=== PATIENT | female | born 1975 | race American Indian/Alaskan Native ===

== ENCOUNTER 2019-01-31 00:42 | Observation (INO) | payer OTHER ==
[2019-01-31 01:28] LABS: Hematocrit 23.4 % (30.3-42.9); Hemoglobin 6.9 gm/dl (10.1-14.3); Mean Corpuscular HGB Conc 30 % (30-34); Platelet Count 536 K/mm3 (140-440)
[2019-01-31 01:37] LABS: Mean Corpuscular Volume 57 fl (79-97); Red Cell Distribution Width 23.2 % (13.2-15.2)
[2019-01-31 02:09] LABS: Alanine Aminotransferase 6 units/L (7-56); BUN/Creatinine Ratio 13; Blood Urea Nitrogen 8 mg/dL (7-17); Calcium 9.1 mg/dL (8.4-10.2)
[2019-01-31 02:10] LABS: Hemolysis Index 1; RBC Morphology Normal; Total Cells Counted 100
[2019-01-31 03:02] LABS: Bilirubin,Urine NEG (Negative); Blood,Urine NEG (Negative); Color,Urine Yellow (Yellow); Mucus,Urine FEW /HPF; Protein,Urine <15 mg/dL mg/dL (Negative)
[2019-01-31] MEDS ORDERED: MORPHINE IV ONE (06:47)
[2019-01-31] MEDS ORDERED: NACL 0.9% 500 ML 500 ML IV ONE (06:48)
--- NOTE | 2019-01-31 09:46 | Cat Scan Report ---
CT ABDOMEN PELVIS WITH CONTRAST: HISTORY: Right sided abdominal pain. COMPARISON: none. TECHNIQUE: Helical CT in 1.25mm intervals following IV contrast. Sagittal and coronal reconstructions. FINDINGS: Lung bases: A large hiatal hernia is identified. Visualized lung bases are well aerated. Normal heart size. Liver: Normal. Biliary system: Normal. Pancreas: Normal. Spleen: Normal. Kidneys/ureters/bladder: Normal. Adrenal glands: Normal. Aorta: Normal. Intestines: Normal. Appendix: Normal. Pelvic viscera: A 2.2 cm simple cyst is identified in the right ovary. The left ovary is unremarkable. A 3.1 cm intramural fibroid is suspected along the right side of the uterine fundus. Normal endometrium. Ascites: None. Adenopathy: None. Musculoskeletal: Normal. IMPRESSION: 2.2 cm right ovarian cyst. Uterine fibroid. Hiatal hernia. No acute inflammatory process is identified.
--- NOTE | 2019-01-31 10:24 | Emergency Department Report ---
ED General Adult HPI - General Chief complaint: Abdominal Pain Stated complaint: SHARP PAINS RIGHT SIDE Time Seen by Provider: 01/31/19 06:09 Source: patient Mode of arrival: Ambulatory Limitations: No Limitations - History of Present Illness Initial comments: Patient is a 43-year-old female past medical history high blood pressure who presents with right flank pain that going on for the last couple of days. Patient states that the pain is a 9 out of 10 in a heat type of pain. She also states that she's been having heavy bleeding from her menses. However she is not currently having any vaginal bleeding. Patient denies any nausea or vomiting she denies having any shortness of breath. Patient denies having any fevers or chills Severity scale (0 -10): 8 - Related Data Previous Rx's Medication Instructions Recorded Last Taken Type Acetaminophen [Acetaminophen TAB] 650 mg PO Q6H PRN #30 tablet 05/01/15 Unknown Rx Aspirin EC [Halfprin EC] 81 mg PO QDAY #30 tablet. 05/01/15 Unknown Rx Metoprolol [Lopressor TAB] 25 mg PO BID #60 tablet 05/01/15 Unknown Rx Allergies Allergy/AdvReac Type Severity Reaction Status Date / Time No Known Allergies Allergy Verified 04/30/15 18:07 ED Review of Systems ROS: Stated complaint: SHARP PAINS RIGHT SIDE Other details as noted in HPI Constitutional: denies: chills, fever Eyes: denies: eye pain, eye discharge, vision change ENT: denies: ear pain, throat pain Respiratory: denies: cough, shortness of breath, wheezing Cardiovascular: denies: chest pain, palpitations Endocrine: no symptoms reported Gastrointestinal: abdominal pain. denies: nausea, diarrhea Genitourinary: abnormal menses. denies: urgency, dysuria, discharge Musculoskeletal: denies: back pain, joint swelling, arthralgia Skin: denies: rash, lesions Neurological: denies: headache, weakness, paresthesias Psychiatric: denies: anxiety, depression Hematological/Lymphatic: denies: easy bleeding, easy bruising ED Past Medical Hx - Past Medical History Previous Medical History?: No - Surgical History Past Surgical History?: Yes Additional Surgical History: tubaligation - Social History Smoking Status: Never Smoker Substance Use Type: None - Medications Home Medications: Home Medications Medication Instructions Recorded Confirmed Last Taken Type Acetaminophen [Acetaminophen TAB] 650 mg PO Q6H PRN #30 tablet 05/01/15 Unknown Rx Aspirin EC [Halfprin EC] 81 mg PO QDAY #30 tablet. 05/01/15 Unknown Rx Metoprolol [Lopressor TAB] 25 mg PO BID #60 tablet 05/01/15 Unknown Rx ED Physical Exam - General Limitations: No Limitations General appearance: alert, in no apparent distress - Head Head exam: Present: atraumatic, normocephalic - Eye Eye exam: Present: normal appearance - ENT ENT exam: Present: mucous membranes moist - Neck Neck exam: Present: normal inspection - Respiratory Respiratory exam: Present: normal lung sounds bilaterally. Absent: respiratory distress - Cardiovascular Cardiovascular Exam: Present: regular rate, normal rhythm. Absent: systolic mur mur, diastolic murmur, rubs, gallop - GI/Abdominal GI/Abdominal exam: Present: soft, normal bowel sounds - Extremities Exam Extremities exam: Present: normal inspection - Back Exam Back exam: Present: normal inspection - Neurological Exam Neurological exam: Present: alert, oriented X3 - Psychiatric Psychiatric exam: Present: normal affect, normal mood - Skin Skin exam: Present: warm, dry, intact, normal color. Absent: rash ED Course Vital Signs 01/31/19 01/31/19 01/31/19 00:46 04:31 06:02 Temperature 98.1 F 97.9 F Pulse Rate 93 H 73 63 Respiratory 18 18 16 Rate Blood Pressure 153/76 143/77 Blood Pressure 133/80 [Left] O2 Sat by Pulse 100 100 100 Oximetry 01/31/19 01/31/19 01/31/19 08:15 08:46 09:00 Temperature Pulse Rate 58 L 62 60 Respiratory 12 14 12 Rate Blood Pressure 131/75 110/46 125/73 Blood Pressure [Left] O2 Sat by Pulse 100 100 100 Oximetry 01/31/19 01/31/19 01/31/19 09:15 09:30 09:46 Temperature Pulse Rate 61 60 62 Respiratory 13 13 13 Rate Blood Pressure 136/76 132/72 141/58 Blood Pressure [Left] O2 Sat by Pulse 100 100 100 Oximetry 01/31/19 01/31/19 01/31/19 10:00 10:16 10:30 Temperature Pulse Rate 63 61 60 Respiratory 12 22 12 Rate Blood Pressure 141/58 141/58 137/67 Blood Pressure [Left] O2 Sat by Pulse 100 100 100 Oximetry 01/31/19 01/31/19 01/31/19 10:45 11:00 11:24 Temperature Pulse Rate 58 L 61 65 Respiratory 13 14 11 L Rate Blood Pressure 121/62 129/72 121/62 Blood Pressure [Left] O2 Sat by Pulse 100 100 100 Oximetry 01/31/19 01/31/19 01/31/19 11:30 11:45 12:00 Temperature Pulse Rate 62 57 L 59 L Respiratory 12 12 13 Rate Blood Pressure 116/64 119/69 121/62 Blood Pressure [Left] O2 Sat by Pulse 100 100 100 Oximetry 01/31/19 01/31/19 01/31/19 12:16 12:21 12:25 Temperature 97.7 F Pulse Rate 64 67 Respiratory 12 12 Rate Blood Pressure 124/76 124/76 Blood Pressure [Left] O2 Sat by Pulse 100 100 Oximetry 01/31/19 01/31/19 01/31/19 12:34 12:45 13:01 Temperature Pulse Rate 66 69 62 Respiratory 14 15 15 Rate Blood Pressure 117/42 126/50 Blood Pressure [Left] O2 Sat by Pulse 100 100 100 Oximetry 01/31/19 01/31/19 01/31/19 13:15 13:30 13:45 Temperature Pulse Rate 63 63 64 Respiratory 15 15 14 Rate Blood Pressure 126/50 111/55 114/65 Blood Pressure [Left] O2 Sat by Pulse 100 100 100 Oximetry 01/31/19 01/31/19 14:00 14:05 Temperature Pulse Rate 63 Respiratory 14 18 Rate Blood Pressure 107/69 Blood Pressure [Left] O2 Sat by Pulse 100 Oximetry ED Medical Decision Making - Lab Data Result diagrams: 01/31/19 01:00 01/31/19 01:00 Lab Results 01/31/19 01/31/19 01/31/19 Range/Units 01:00 01:00 07:06 WBC 6.1 (4.5-11.0) K/mm3 RBC 4.10 (3.65-5.03) M/mm3 Hgb 6.9 L (10.1-14.3) gm/dl Hct 23.4 L (30.3-42.9) % MCV 57 L (79-97) fl MCH 17 L (28-32) pg MCHC 30 (30-34) % RDW 23.2 H (13.2-15.2) % Plt Count 536 H (140-440) K/mm3 Add Manual Diff Complete Total Counted 100 Seg Neuts % (Manual) 40.0 (40.0-70.0) % Band Neutrophils % 0 % Lymphocytes % (Manual) 47.0 H (13.4-35.0) % Reactive Lymphs % (Man) 0 % Monocytes % (Manual) 10.0 H (0.0-7.3) % Eosinophils % (Manual) 2.0 (0.0-4.3) % Basophils % (Manual) 1.0 (0.0-1.8) % Metamyelocytes % 0 % Myelocytes % 0 % Promyelocytes % 0 % Blast Cells % 0 % Nucleated RBC % Not Reportable Seg Neutrophils # Man 2.4 (1.8-7.7) K/mm3 Band Neutrophils # 0.0 K/mm3 Lymphocytes # (Manual) 2.9 (1.2-5.4) K/mm3 Abs React Lymphs (Man) 0.0 K/mm3 Monocytes # (Manual) 0.6 (0.0-0.8) K/mm3 Eosinophils # (Manual) 0.1 (0.0-0.4) K/mm3 Basophils # (Manual) 0.1 (0.0-0.1) K/mm3 Metamyelocytes # 0.0 K/mm3 Myelocytes # 0.0 K/mm3 Promyelocytes # 0.0 K/mm3 Blast Cells # 0.0 K/mm3 WBC Morphology Not Reportable Hypersegmented Neuts Not Reportable Hyposegmented Neuts Not Reportable Hypogranular Neuts Not Reportable Smudge Cells Not Reportable Toxic Granulation Not Reportable Toxic Vacuolation Not Reportable Dohle Bodies Not Reportable Pelger-Huet Anomaly Not Reportable Chidi Rods Not Reportable Platelet Estimate Not Reportable Clumped Platelets Not Reportable Plt Clumps, EDTA Not Reportable Large Platelets Not Reportable Giant Platelets Not Reportable Platelet Satelliting Not Reportable Plt Morphology Comment Not Reportable RBC Morphology Normal Dimorphic RBCs Not Reportable Polychromasia Not Reportable Hypochromasia Not Reportable Poikilocytosis Not Reportable Anisocytosis Not Reportable Microcytosis Not Reportable Macrocytosis Not Reportable Spherocytes Not Reportable Pappenheimer Bodies Not Reportable Sickle Cells Not Reportable Target Cells Not Reportable Tear Drop Cells Not Reportable Ovalocytes Not Reportable Helmet Cells Not Reportable [place] Bodies Not Reportable [place] Rings Not Reportable [place] Cells Not Reportable Bite Cells Not Reportable Crenated Cell Not Reportable Elliptocytes Not Reportable Acanthocytes (Spur) Not Reportable Rouleaux Not Reportable Hemoglobin C Crystals Not Reportable Schistocytes Not Reportable Malaria parasites Not Reportable Pranav Bodies Not Reportable Hem Pathologist Commnt No Sodium 139 (137-145) mmol/L Potassium 4.3 (3.6-5.0) mmol/L Chloride 106.2 (98-107) mmol/L Carbon Dioxide 21 L (22-30) mmol/L Anion Gap 16 mmol/L BUN 8 (7-17) mg/dL Creatinine 0.6 L (0.7-1.2) mg/dL Estimated GFR > 60 ml/min BUN/Creatinine Ratio 13 % Glucose 106 H (65-100) mg/dL Calcium 9.1 (8.4-10.2) mg/dL Total Bilirubin 0.30 (0.1-1.2) mg/dL AST 13 (5-40) units/L ALT 6 L (7-56) units/L Alkaline Phosphatase 73 (35-129) units/L Total Protein 7.4 (6.3-8.2) g/dL Albumin 4.0 (3.9-5) g/dL Albumin/Globulin Ratio 1.2 % Urine Color (Yellow) Urine Turbidity (Clear) Urine pH (5.0-7.0) Ur Specific [place] (1.003-1.030) Urine Protein (Negative) mg/dL Urine Glucose (UA) (Negative) mg/dL Urine Ketones (Negative) mg/dL Urine Blood (Negative) Urine Nitrite (Negative) Urine Bilirubin (Negative) Urine Urobilinogen (<2.0) mg/dL Ur Leukocyte Esterase (Negative) Urine WBC (Auto) (0.0-6.0) /HPF Urine RBC (Auto) (0.0-6.0) /HPF U Epithel Cells (Auto) (0-13.0) /HPF Urine Mucus /HPF Blood Type O POSITIVE Antibody Screen Negative Crossmatch See Detail 01/31/19 Range/Units Unknown WBC (4.5-11.0) K/mm3 RBC (3.65-5.03) M/mm3 Hgb (10.1-14.3) gm/dl Hct (30.3-42.9) % MCV (79-97) fl MCH (28-32) pg MCHC (30-34) % RDW (13.2-15.2) % Plt Count (140-440) K/mm3 Add Manual Diff Total Counted Seg Neuts % (Manual) (40.0-70.0) % Band Neutrophils % % Lymphocytes % (Manual) (13.4-35.0) % Reactive Lymphs % (Man) % Monocytes % (Manual) (0.0-7.3) % Eosinophils % (Manual) (0.0-4.3) % Basophils % (Manual) (0.0-1.8) % Metamyelocytes % % Myelocytes % % Promyelocytes % % Blast Cells % % Nucleated RBC % Seg Neutrophils # Man (1.8-7.7) K/mm3 Band Neutrophils # K/mm3 Lymphocytes # (Manual) (1.2-5.4) K/mm3 Abs React Lymphs (Man) K/mm3 Monocytes # (Manual) (0.0-0.8) K/mm3 Eosinophils # (Manual) (0.0-0.4) K/mm3 Basophils # (Manual) (0.0-0.1) K/mm3 Metamyelocytes # K/mm3 Myelocytes # K/mm3 Promyelocytes # K/mm3 Blast Cells # K/mm3 WBC Morphology Hypersegmented Neuts Hyposegmented Neuts Hypogranular Neuts Smudge Cells Toxic Granulation Toxic Vacuolation Dohle Bodies Pelger-Huet Anomaly Chidi Rods Platelet Estimate Clumped Platelets Plt Clumps, EDTA Large Platelets Giant Platelets Platelet Satelliting Plt Morphology Comment RBC Morphology Dimorphic RBCs Polychromasia Hypochromasia Poikilocytosis Anisocytosis Microcytosis Macrocytosis Spherocytes Pappenheimer Bodies Sickle Cells Target Cells Tear Drop Cells Ovalocytes Helmet Cells [place] Bodies [place] Rings [place] Cells Bite Cells Crenated Cell Elliptocytes Acanthocytes (Spur) Rouleaux Hemoglobin C Crystals Schistocytes Malaria parasites Pranav Bodies Hem Pathologist Commnt Sodium (137-145) mmol/L Potassium (3.6-5.0) mmol/L Chloride (98-107) mmol/L Carbon Dioxide (22-30) mmol/L Anion Gap mmol/L BUN (7-17) mg/dL Creatinine (0.7-1.2) mg/dL Estimated GFR ml/min BUN/Creatinine Ratio % Glucose (65-100) mg/dL Calcium (8.4-10.2) mg/dL Total Bilirubin (0.1-1.2) mg/dL AST (5-40) units/L ALT (7-56) units/L Alkaline Phosphatase (35-129) units/L Total Protein (6.3-8.2) g/dL Albumin (3.9-5) g/dL Albumin/Globulin Ratio % Urine Color Yellow (Yellow) Urine Turbidity Clear (Clear) Urine pH 7.0 (5.0-7.0) Ur Specific [place] 1.009 (1.003-1.030) Urine Protein <15 mg/dl (Negative) mg/dL Urine Glucose (UA) Neg (Negative) mg/dL Urine Ketones Neg (Negative) mg/dL Urine Blood Neg (Negative) Urine Nitrite Neg (Negative) Urine Bilirubin Neg (Negative) Urine Urobilinogen 4.0 (<2.0) mg/dL Ur Leukocyte Esterase Tr (Negative) Urine WBC (Auto) 2.0 (0.0-6.0) /HPF Urine RBC (Auto) 2.0 (0.0-6.0) /HPF U Epithel Cells (Auto) 3.0 (0-13.0) /HPF Urine Mucus Few /HPF Blood Type Antibody Screen Crossmatch - Radiology Data Radiology results: report reviewed, image reviewed CT scan of abdomen: Shows no acute intra-abdominal process - Medical Decision Making Chief Medical diagnosis: Anemia secondary to heavy menses Differential medical diagnosis: UTI, renal colic CBC BMP type and screen transfuse 1 unit of 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 Critical Care Time: Yes (35) Critical care time in (mins) excluding proc time.: 35 Critical care attestation.: If time is entered above; I have spent that time in minutes in the direct care of this critically ill patient, excluding procedure time. Critical care time spent a patient's bed side 20 minutes Critical care time surgery and laboratory findings 10 minutes Critical care time spent with consultants 5 minutes ED Disposition Clinical Impression: Right flank pain Anemia Qualifiers: Anemia type: unspecified type Qualified Code(s): D64.9 - Anemia, unspecified Disposition: DC-09 OP ADMIT IP TO THIS HOSP Is pt being admited?: Yes Does the pt Need Aspirin: No Condition: Stable Instructions: Abdominal Pain (ED) Referrals: PARKER OJEDA MD [Primary Care Provider] - 3-5 Days
[2019-01-31] MEDS ORDERED: LOVENOX SUB-Q SCH (16:00)
--- NOTE | 2019-01-31 18:57 | History and Physical Report ---
History of Present Illness Date of examination: 01/31/19 Date of admission: 01/31/19 15:49 Chief complaint: Generalized weakness 3 days History of present illness: 43-year-old female past medical history of high blood pressure who presents with right flank pain going on for the last couple of days. Patient states that the pain is a 9 out of 10 . She also states that she's been having heavy bleeding from her menses. Patient denies any nausea or vomiting she denies having any shortness of breath. Patient denies having any fevers or chills.Generalized weakness and easy fatifability present. Has heavy menstrual bleeding which persists.Uses 6 pads every day. Past Medical History HTN Surgical History Past Surgical History?: Yes Additional Surgical History: tubaligation Social History Smoking Status: Never Smoker Substance Use Type: None Family History Htn Medications Home Medications: Home Medications Medication Instructions Recorded Confirmed Last Taken Type Acetaminophen [Acetaminophen TAB] 650 mg PO Q6H PRN #30 tablet 05/01/15 Unknown Rx Aspirin EC [Halfprin EC] 81 mg PO QDAY #30 tablet. 05/01/15 Unknown Rx Metoprolol [Lopressor TAB] 25 mg PO BID #60 tablet 05/01/15 Unknown Rx Review of Systems ROS: Stated complaint: SHARP PAINS RIGHT SIDE Other details as noted in HPI Constitutional: denies: chills, fever Eyes: denies: eye pain, eye discharge, vision change ENT: denies: ear pain, throat pain Respiratory: denies: cough, shortness of breath, wheezing Cardiovascular: denies: chest pain, palpitations Endocrine: no symptoms reported Gastrointestinal: abdominal pain. denies: nausea, diarrhea Genitourinary: abnormal menses. denies: urgency, dysuria, discharge Musculoskeletal: denies: back pain, joint swelling, arthralgia Skin: denies: rash, lesions Neurological: denies: headache, weakness, paresthesias Psychiatric: denies: anxiety, depression Hematological/Lymphatic: denies: easy bleeding, easy bruising Medications and Allergies Allergies Allergy/AdvReac Type Severity Reaction Status Date / Time No Known Allergies Allergy Verified 04/30/15 18:07 Home Medications Medication Instructions Recorded Confirmed Last Taken Type No Known Home Medications [No 01/31/19 01/31/19 Unknown History Reported Home Medications] Active Meds: Active Medications Enoxaparin Sodium (Lovenox) 40 mg SUB-Q QDAY@1000 [facility] Exam - Constitutional Vitals: Temp Pulse Resp BP Pulse Ox 97.7 F 71 15 125/86 100 01/31/19 12:25 01/31/19 14:31 01/31/19 14:31 01/31/19 14:31 01/31/19 14:31 General appearance: Present: no acute distress, well-nourished - EENT Eyes: Present: PERRL ENT: hearing intact, clear oral mucosa, other (Pale mucous membranes) - Neck Neck: Present: supple, normal ROM - Respiratory Respiratory effort: normal Respiratory: bilateral: CTA - Cardiovascular Heart rate: 78 Rhythm: regular Heart Sounds: Present: S1 & S2. Absent: rub, click - Extremities Extremities: no ischemia, pulses intact, pulses symmetrical, No edema Peripheral Pulses: within normal limits - Abdominal General gastrointestinal: Present: soft, non-tender, non-distended, normal bowel sounds Female genitourinary: Present: normal - Rectal Rectal Exam: deferred - Integumentary Integumentary: Present: clear, warm, dry - Musculoskeletal Musculoskeletal: gait normal, strength equal bilaterally - Psychiatric Psychiatric: appropriate mood/affect, intact judgment & insight - Neurologic Neurologic: CNII-XII intact, moves all extremities - Allied Health Allied health notes reviewed: nursing, case management Results - Labs CBC & Chem 7: 01/31/19 01:00 01/31/19 01:00 Labs: Laboratory Last Values WBC 6.1 K/mm3 (4.5-11.0) 01/31/19 01:00 RBC 4.10 M/mm3 (3.65-5.03) 01/31/19 01:00 Hgb 6.9 gm/dl (10.1-14.3) L 01/31/19 01:00 Hct 23.4 % (30.3-42.9) L 01/31/19 01:00 MCV 57 fl (79-97) L 01/31/19 01:00 MCH 17 pg (28-32) L 01/31/19 01:00 MCHC 30 % (30-34) 01/31/19 01:00 RDW 23.2 % (13.2-15.2) H 01/31/19 01:00 Plt Count 536 K/mm3 (140-440) H 01/31/19 01:00 Add Manual Diff Complete 01/31/19 01:00 Total Counted 100 01/31/19 01:00 Seg Neuts % (Manual) 40.0 % (40.0-70.0) 01/31/19 01:00 Band Neutrophils % 0 % 01/31/19 01:00 Lymphocytes % (Manual) 47.0 % (13.4-35.0) H 01/31/19 01:00 Reactive Lymphs % (Man) 0 % 01/31/19 01:00 Monocytes % (Manual) 10.0 % (0.0-7.3) H 01/31/19 01:00 Eosinophils % (Manual) 2.0 % (0.0-4.3) 01/31/19 01:00 Basophils % (Manual) 1.0 % (0.0-1.8) 01/31/19 01:00 Metamyelocytes % 0 % 01/31/19 01:00 Myelocytes % 0 % 01/31/19 01:00 Promyelocytes % 0 % 01/31/19 01:00 Blast Cells % 0 % 01/31/19 01:00 Nucleated RBC % Not Reportable 01/31/19 01:00 Seg Neutrophils # Man 2.4 K/mm3 (1.8-7.7) 01/31/19 01:00 Band Neutrophils # 0.0 K/mm3 01/31/19 01:00 Lymphocytes # (Manual) 2.9 K/mm3 (1.2-5.4) 01/31/19 01:00 Abs React Lymphs (Man) 0.0 K/mm3 01/31/19 01:00 Monocytes # (Manual) 0.6 K/mm3 (0.0-0.8) 01/31/19 01:00 Eosinophils # (Manual) 0.1 K/mm3 (0.0-0.4) 01/31/19 01:00 Basophils # (Manual) 0.1 K/mm3 (0.0-0.1) 01/31/19 01:00 Metamyelocytes # 0.0 K/mm3 01/31/19 01:00 Myelocytes # 0.0 K/mm3 01/31/19 01:00 Promyelocytes # 0.0 K/mm3 01/31/19 01:00 Blast Cells # 0.0 K/mm3 01/31/19 01:00 WBC Morphology Not Reportable 01/31/19 01:00 Hypersegmented Neuts Not Reportable 01/31/19 01:00 Hyposegmented Neuts Not Reportable 01/31/19 01:00 Hypogranular Neuts Not Reportable 01/31/19 01:00 Smudge Cells Not Reportable 01/31/19 01:00 Toxic Granulation Not Reportable 01/31/19 01:00 Toxic Vacuolation Not Reportable 01/31/19 01:00 Dohle Bodies Not Reportable 01/31/19 01:00 Pelger-Huet Anomaly Not Reportable 01/31/19 01:00 Chidi Rods Not Reportable 01/31/19 01:00 Platelet Estimate Not Reportable 01/31/19 01:00 Clumped Platelets Not Reportable 01/31/19 01:00 Plt Clumps, EDTA Not Reportable 01/31/19 01:00 Large Platelets Not Reportable 01/31/19 01:00 Giant Platelets Not Reportable 01/31/19 01:00 Platelet Satelliting Not Reportable 01/31/19 01:00 Plt Morphology Comment Not Reportable 01/31/19 01:00 RBC Morphology Normal 01/31/19 01:00 Dimorphic RBCs Not Reportable 01/31/19 01:00 Polychromasia Not Reportable 01/31/19 01:00 Hypochromasia Not Reportable 01/31/19 01:00 Poikilocytosis Not Reportable 01/31/19 01:00 Anisocytosis Not Reportable 01/31/19 01:00 Microcytosis Not Reportable 01/31/19 01:00 Macrocytosis Not Reportable 01/31/19 01:00 Spherocytes Not Reportable 01/31/19 01:00 Pappenheimer Bodies Not Reportable 01/31/19 01:00 Sickle Cells Not Reportable 01/31/19 01:00 Target Cells Not Reportable 01/31/19 01:00 Tear Drop Cells Not Reportable 01/31/19 01:00 Ovalocytes Not Reportable 01/31/19 01:00 Helmet Cells Not Reportable 01/31/19 01:00 Taylor-Billingsley Bodies Not Reportable 01/31/19 01:00 [place] Rings Not Reportable 01/31/19 01:00 [place] Cells Not Reportable 01/31/19 01:00 Bite Cells Not Reportable 01/31/19 01:00 Crenated Cell Not Reportable 01/31/19 01:00 Elliptocytes Not Reportable 01/31/19 01:00 Acanthocytes (Spur) Not Reportable 01/31/19 01:00 Rouleaux Not Reportable 01/31/19 01:00 Hemoglobin C Crystals Not Reportable 01/31/19 01:00 Schistocytes Not Reportable 01/31/19 01:00 Malaria parasites Not Reportable 01/31/19 01:00 Pranav Bodies Not Reportable 01/31/19 01:00 Hem Pathologist Commnt No 01/31/19 01:00 Sodium 139 mmol/L (137-145) 01/31/19 01:00 Potassium 4.3 mmol/L (3.6-5.0) 01/31/19 01:00 Chloride 106.2 mmol/L (98-107) 01/31/19 01:00 Carbon Dioxide 21 mmol/L (22-30) L 01/31/19 01:00 Anion Gap 16 mmol/L 01/31/19 01:00 BUN 8 mg/dL (7-17) 01/31/19 01:00 Creatinine 0.6 mg/dL (0.7-1.2) L 01/31/19 01:00 Estimated GFR > 60 ml/min 01/31/19 01:00 BUN/Creatinine Ratio 13 % 01/31/19 01:00 Glucose 106 mg/dL (65-100) H 01/31/19 01:00 Calcium 9.1 mg/dL (8.4-10.2) 01/31/19 01:00 Total Bilirubin 0.30 mg/dL (0.1-1.2) 01/31/19 01:00 AST 13 units/L (5-40) 01/31/19 01:00 ALT 6 units/L (7-56) L 01/31/19 01:00 Alkaline Phosphatase 73 units/L (35-129) 01/31/19 01:00 Total Protein 7.4 g/dL (6.3-8.2) 01/31/19 01:00 Albumin 4.0 g/dL (3.9-5) 01/31/19 01:00 Albumin/Globulin Ratio 1.2 % 01/31/19 01:00 Urine Color Yellow (Yellow) 01/31/19 Unknown Urine Turbidity Clear (Clear) 01/31/19 Unknown Urine pH 7.0 (5.0-7.0) 01/31/19 Unknown Ur Specific [place] 1.009 (1.003-1.030) 01/31/19 Unknown Urine Protein <15 mg/dl mg/dL (Negative) 01/31/19 Unknown Urine Glucose (UA) Neg mg/dL (Negative) 01/31/19 Unknown Urine Ketones Neg mg/dL (Negative) 01/31/19 Unknown Urine Blood Neg (Negative) 01/31/19 Unknown Urine Nitrite Neg (Negative) 01/31/19 Unknown Urine Bilirubin Neg (Negative) 01/31/19 Unknown Urine Urobilinogen 4.0 mg/dL (<2.0) 01/31/19 Unknown Ur Leukocyte Esterase Tr (Negative) 01/31/19 Unknown Urine WBC (Auto) 2.0 /HPF (0.0-6.0) 01/31/19 Unknown Urine RBC (Auto) 2.0 /HPF (0.0-6.0) 01/31/19 Unknown U Epithel Cells (Auto) 3.0 /HPF (0-13.0) 01/31/19 Unknown Urine Mucus Few /HPF 01/31/19 Unknown Blood Type O POSITIVE 01/31/19 07:06 Antibody Screen Negative 01/31/19 07:06 Crossmatch See Detail 01/31/19 07:06 - Imaging and Cardiology CT scan - abdomen: report reviewed CT scan - pelvis: report reviewed Imaging and Cardiology: CT Abdomen and pelvis Pelvic viscera: A 2.2 cm simple cyst is identified in the right ovary. The left ovary is unremarkable. A 3.1 cm intramural fibroid is suspected along the right side of the uterine fundus. Normal endometrium. Ascites: None. Adenopathy: None. Musculoskeletal: Normal. IMPRESSION: 2.2 cm right ovarian cyst. Uterine fibroid. Hiatal hernia. No acute inflammatory process is identified. Assessment and Plan Advance Directives: Yes (Full code) VTE prophylaxis?: Chemical Plan of care discussed with patient/family: Yes - Patient Problems (1) Symptomatic anemia Current Visit: Yes Status: Acute Plan to address problem: Sec to Menorrhagia and Fibroids. 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
[2019-01-31] MEDS ORDERED: SODIUM CHLORIDE FLUSH SYRINGE 10 ML IV PRN (21:27)
[2019-01-31] MEDS ORDERED: ZOFRAN IV PRN (21:27)
[2019-01-31] MEDS ORDERED: TYLENOL PO PRN (21:27)
[2019-01-31] MEDS ORDERED: PERCOCET 5/325 PO PRN (21:27)
[2019-01-31] MEDS ORDERED: DILAUDID IV PRN (21:27)
[2019-01-31] MEDS ORDERED: D5NS 1,000 ML IV SCH (22:00)
[2019-01-31] MEDS: PROVERA PO SCH (22:17)
[2019-01-31] MEDS: LOVENOX SUB-Q SCH (22:18)
[2019-01-31] MEDS: SODIUM CHLORIDE FLUSH SYRINGE 10 ML IV SCH (22:18)
[2019-02-01 06:14] LABS: Hematocrit 24.3 % (30.3-42.9); Hemoglobin 7.3 gm/dl (10.1-14.3); Mean Corpuscular HGB Conc 30 % (30-34); Platelet Count 440 K/mm3 (140-440); Red Blood Count 4.05 M/mm3 (3.65-5.03)
[2019-02-01 06:18] LABS: Mean Corpuscular Volume 60 fl (79-97); Red Cell Distribution Width 24.9 % (13.2-15.2)
[2019-02-01 06:42] LABS: Albumin 3.6 g/dL (3.9-5); BUN/Creatinine Ratio 12; Blood Urea Nitrogen 6 mg/dL (7-17); Calcium 8.7 mg/dL (8.4-10.2); Hemolysis Index 1
[2019-02-01 06:56] LABS: Alanine Aminotransferase < 5 units/L (7-56)
[2019-02-01 09:36] LABS: Total Cells Counted 100
[2019-02-01 09:37] LABS: Anisocytosis 2+; Hypochromasia 2+; Poikilocytosis 1+; Target Cells 1+
[2019-02-01 09:38] LABS: Large Platelets Rare; Platelet Estimate Consistent w Auto; Tear Drop Cells Few
--- NOTE | 2019-02-01 11:49 | Ultrasound Report ---
ULTRASOUND PELVIC COMPLETE HISTORY: Menorrhagia. COMPARISON: CT abdomen pelvis with contrast dated 01/31/19. TECHNIQUE: Transabdominal and transvaginal ultrasound with color doppler interrogation. FINDINGS: Uterus: The uterus is anteverted. The uterus measures 10.1 x 5.8 x 6.7 cm. 3 uterine masses are identified consistent with fibroids. A 3.1 x 2.7 x 2.6 cm intramural fibroid is identified in the right side of the uterine fundus. A 1.5 x 1.3 x 0.8 cm intramural fibroid is identified in the posterior wall. A 2.3 x 2.4 x 1.9 cm subserosal fibroid is identified in the lower posterior uterine wall. Endometrium: 11 mm. Small endometrial fluid is identified. Correlate with the patient's menstrual status. Right ovary: 4.4 x 2.0 x 3.1 cm. A 3.1 cm right ovarian cyst is identified. Left ovary: Not visualized. No pelvic fluid or mass is identified. Normal color doppler interrogation. IMPRESSION: Mild uterine fibroid disease as described. Small endometrial fluid is identified. Correlate with the patient's menstrual status. 3.1 cm right ovarian cyst. The left ovary is not visualized on ultrasound but is unremarkable on CT with contrast.
[2019-02-01] MEDS: SODIUM CHLORIDE FLUSH SYRINGE 10 ML IV SCH (12:05)
[2019-02-01] MEDS: LOVENOX SUB-Q SCH (12:07)
[2019-02-01] MEDS: PROVERA PO SCH (12:07)
--- NOTE | 2019-02-01 12:27 | Discharge Summary ---
Providers - Providers Date of Admission: 01/31/19 15:49 Date of discharge: 02/01/19 Attending physician: MIKE LR 01/31/19 21:27 Consult to Physician [CONS] Routine Comment: Consulting Provider: DAGOBERTO MELGAR Physician Instructions: Reason For Exam: Menorrhagia Primary care physician: [facility], Hospitalization Reason for admission: Gen.weakness/symptomatic anemia Condition: Stable Pertinent studies: CT abd :Ovarian cyst,UT fibroid,hiatal herna ABD US :Ut Fibroid, ovarian cyst Procedures: transfusion 1 unit PRBC Hospital course: 43-year-old female past medical history of HTN,menorrhagia and anemia was admitted with gen weakness and anemia. Symptomatically managed and received 1 unit PRBC,Abd CT and Abd US findings consistent with fibroid ut and ovarian cyst. Patient advised to see private gynaecologist for further evaln and management. Today pt is comfortable,no new complaints,vital signs stable, Discharge Diagnosis: Symptomatic anemia: s/p Transfusion --Menorrhagia:no active bleeding Symptomatically managed ,Adv to see atv mechanic as out pt --Fibroid Uterus:no active bleeding advised to see atv mechanic upon discharge --Morbid obesity: advised weight reduction when med stable. Disposition: DC-01 TO HOME OR SELFCARE Time spent for discharge: 32 min Core Measure Documentation - Palliative Care Palliative Care/ Comfort Measures: Not Applicable - Core Measures Any of the following diagnoses?: none Exam - Constitutional Vitals: Temp Pulse Resp BP Pulse Ox 98.0 F 84 22 133/87 95 01/31/19 23:35 02/01/19 01:01 02/01/19 01:01 02/01/19 01:01 02/01/19 01:01 General appearance: Present: no acute distress, well-nourished, obese - EENT Eyes: Present: PERRL, EOM intact - Neck Neck: Present: supple, normal ROM - Respiratory Respiratory effort: normal Respiratory: bilateral: diminished, negative: rales, rhonchi, wheezing - Cardiovascular Rhythm: regular Heart Sounds: Present: S1 & S2 - Extremities Extremities: no ischemia, No edema - Abdominal General gastrointestinal: Present: soft, non-tender, non-distended, normal bowel sounds - Integumentary Integumentary: Present: clear, warm - Musculoskeletal Musculoskeletal: strength equal bilaterally, generalized weakness - Psychiatric Psychiatric: appropriate mood/affect - Neurologic Neurologic: moves all extremities Plan Activity: advance as tolerated, fall precautions Diet: regular Additional Instructions: Advised to take [id number] pain medication for pa in as needed. See OBSTETRICS TEACHER for further evaluation of menorrhagia and anemia [facility] [Primary Care Provider] - 3-5 Days DAGOBERTO MELGAR MD [Staff Physician] - 7 Days Prescriptions: Ferrous Sulfate [Feosol 325 MG tab] 325 mg PO BID #60 tablet
[2019-02-01 12:30] VITALS: BP 130/77
== END 2019-02-01 16:39 | disposition home or self-care (01) ==
LOC: ED 00:42 → INTOOBSV 15:49 → 3A 15:49
PROVIDERS: ADMIT Internal Medicine; ATTEND Internal Medicine
DX: D64.9 Anemia, unspecified (principal); I10 Essential (primary) hypertension; N92.0 Excessive and frequent menstruation with regular cycle; Z98.51 Tubal ligation status; Z82.49 Family history of ischemic heart disease and other diseases of the circulatory system
CPT/HCPCS: 36415; 36430; 74177; 76856; 80053; 81001; 83036; 85007; 85025; 86850; 86900; 86901; 86920; 96374; 96375; 99291; G0378; J1170; J2270; J7040; J7042; P9016; Q9967; J1650

== ENCOUNTER 2019-08-16 19:51 | Emergency (ER) | payer OTHER ==
[2019-08-16 20:33] VITALS: BP 167/87
--- NOTE | 2019-08-16 21:33 | Emergency Department Report ---
HPI - General Chief Complaint: Extremity Injury, Lower Time Seen by Provider: 08/16/19 21:02 - HPI HPI: 44-year-old -[place] female presents to the emergency department with a complaint of a 4-5 day history of some right buttock and hip pain with radiation down the right leg. Even goes down into the calf. It also radiates slightly into the right lower back. She denies any problems with bowel or bladder, numbness or paresthesias, or any neurological deficits. The pain worsens with certain movements. She feels that the leg is slightly swollen but denies any warmth, skin color change, fluctuance. She denies any recent travel, immobility, recent surgery. She has not taken anything for her symptoms prior to presentation. She has a past medical history of TIA, GERD and sciatica. ED Past Medical Hx - Past Medical History Previous Medical History?: Yes Hx CVA: (TIA) Hx Heart Attack/AMI: No Hx Congestive Heart Failure: No Hx Diabetes: No Hx Deep Vein Thrombosis: No Hx GERD: Yes Hx Asthma: No Hx COPD: No Hx Tuberculosis: No Hx HIV: No Additional medical history: Sciatica - Surgical History Past Surgical History?: Yes Hx Coronary Stent: No Hx Pacemaker: No Hx Internal Defibrillator: No Additional Surgical History: Tubal Ligation - Social History Smoking Status: Never Smoker Substance Use Type: Alcohol - Medications Home Medications: Home Medications Medication Instructions Recorded Confirmed Last Taken Type Ferrous Sulfate [Feosol 325 MG tab] 325 mg PO BID #60 tablet 02/01/19 Unknown Rx Cyclobenzaprine [Flexeril] 10 mg PO TID PRN #12 tablet 08/16/19 Unknown Rx predniSONE [Deltasone] 20 mg PO BID #6 tab 08/16/19 Unknown Rx ED Review of Systems ROS: Stated complaint: RIGHT LEG PAIN Other details as noted in HPI Comment: All other systems reviewed and negative Constitutional: denies: chills, fever Respiratory: denies: shortness of breath Cardiovascular: edema. denies: chest pain Gastrointestinal: denies: abdominal pain Musculoskeletal: back pain, joint swelling, arthralgia, myalgia Neurological: denies: weakness, numbness, paresthesias Physical Exam - Physical Exam Vital Signs: Vital Signs 08/16/19 20:31 Temperature 98.9 F Pulse Rate 77 Respiratory 16 Rate Blood Pressure 167/87 O2 Sat by Pulse 100 Oximetry Physical Exam: GENERAL: The patient is well-developed well-nourished. HENT: Normocephalic. Atraumatic. Patient has moist mucous membranes. EYES: Extraocular motions are intact. NECK: Supple. Trachea is midline. ABDOMEN: There is no abdominal distention. SKIN: Skin is warm and dry. I do not appreciate any leg swelling. NEURO: The patient is awake, alert, and oriented. The patient is cooperative. The patient has no focal neurologic deficits. Normal speech. MUSCULOSKELETAL: There is no tenderness to palpation but pain is reproducible with both passive and active movement of the leg. Positive right straight leg raise test.. There is no limitation range of motion. BACK: No midline thoracic or lumbar tenderness to palpation, step-off or deformity. ED Course Vital Signs 08/16/19 20:31 Temperature 98.9 F Pulse Rate 77 Respiratory 16 Rate Blood Pressure 167/87 O2 Sat by Pulse 100 Oximetry ED Medical Decision Making - Medical Decision Making This patient presents to the emergency department with some pain from the right lower back down through the buttock and into the right lower leg. The patient also says that she has some swelling of the right leg. However I cannot appreciate any obvious swelling or edema. She is positive on right-sided straight leg raise test. Overall this appears consistent with sciatica. However I do believe that a DVT needs to be ruled out and I am unable to get the Doppler ultrasound this evening. Given the patient's history of significant anemia requiring transfusions, she did not receive any anticoagulation this evening. However she has been given the order form and instructions to follow- up in the morning for outpatient venous Doppler ultrasound. If positive for DVT, she will be redirected to the emergency department. If negative, she will follow up with primary care and orthopedist. She will return to the ER with any worsening of her symptoms or any acute distress. - Differential Diagnosis sciatica, peripheral neuropathy, DVT Critical Care Time: No Critical care attestation.: If time is entered above; I have spent that time in minutes in the direct care of this critically ill patient, excluding procedure time. ED Disposition Clinical Impression: Right leg pain, Sciatica Disposition: DC-01 TO HOME OR SELFCARE Is pt being admited?: No Condition: Stable Instructions: Arthralgia (ED) Additional Instructions: I have said to up to return to the hospital tomorrow for a right leg venous Doppler ultrasound to rule out a blood clot in the leg. Please call the phone number on the discharge paperwork in the morning to get an assigned time. If positive, he will be redirected to the emergency department for further evaluation and treatment. If negative, I have given you a referral for primary care and an orthopedist. Return to the emergency Department with any worsening of your symptoms or any acute distress. You have been prescribed a medication that is sedating and therefore should not be taken prior to driving, working, and responsible for children and in no way should be mixed with alcohol of any quantity. Prescriptions: predniSONE [Deltasone] 20 mg PO BID #6 tab Cyclobenzaprine [Flexeril] 10 mg PO TID PRN #12 tablet PRN Reason: Muscle Spasm Referrals: ELI CUENCA MD [Staff Physician] - 2-3 Days STEFFI BARRY MD [Staff Physician] - 2-3 Days [facility] [Outside] - 2-3 Days Forms: Work/School Release Form(ED) Time of Disposition: 21:34
== END 2019-08-16 22:15 | disposition home or self-care (01) ==
LOC: ED 19:51
DX: M79.604 Pain in right leg (principal); K21.9 Gastro-esophageal reflux disease without esophagitis; Z98.51 Tubal ligation status; Z86.73 Personal history of transient ischemic attack (TIA), and cerebral infarction without residual deficits
CPT/HCPCS: 99282

== ENCOUNTER 2019-08-17 12:43 | Outpatient (CLI) | payer OTHER ==
--- NOTE | 2019-08-17 14:16 | Vascular Lab Report ---
DUPLEX DOPPLER LOWER EXTREMITY VEINS, RIGHT INDICATION: LOWER EXT PAIN SWELLING. TECHNIQUE: Duplex doppler imaging was performed through the veins of the right lower extremity using venous comp ression and other maneuvers. COMPARISON: None available. FINDINGS: Common femoral vein: Negative. Superficial femoral vein: Negative. Popliteal vein: There is occlusive thrombus Calf veins: There is occlusive thrombus Additional findings: None. IMPRESSION: 1. Occlusive DVT is noted in the right popliteal vein and right posterior tibial and peroneal veins. CRITICAL RESULT: The technologist called this report to Dr. Borrego at time 1329 Eastern time. Report was confirmed. Signer Name: Brannon Vargas MD Signed: 08/17/2019 2:12 PM Workstation Name: [id number]
== END 2019-08-17 12:44 | disposition home or self-care (01) ==
LOC: VAS 12:43
PROVIDERS: ATTEND Emergency Medicine
DX: I82.431 Acute embolism and thrombosis of right popliteal vein (principal); I82.441 Acute embolism and thrombosis of right tibial vein; I82.451 Acute embolism and thrombosis of right peroneal vein; M79.89 Other specified soft tissue disorders

== ENCOUNTER 2019-08-17 14:00 | Emergency (ER) | payer OTHER ==
--- NOTE | 2019-08-17 14:13 | Emergency Department Report ---
HPI - General Time Seen by Provider: 08/17/19 14:05 - HPI HPI: 44 yo AA female comes to ER today p US to ro DVT; she was sent for this after being referred for last pm when seen in ER. NO chest pain. No sob. Sedentary. Obese; no hormones/no travel/no history of same/no family history of dvt/clotting disorder Pt states she has been having RLE pain not consistent with her sciatica pain. No fall or trauma. 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 PMH tia per EMR obese a/c anemia LMP 2 weeks ago Mom dec of hf dad dec of cancer Home meds none PCP none ED Past Medical Hx - Past Medical History Previous Medical History?: Yes Hx Hypertension: No Hx CVA: No (TIA) Hx Heart Attack/AMI: No Hx Congestive Heart Failure: No Hx Diabetes: No Hx Deep Vein Thrombosis: No Hx Pulmonary Embolism: No Hx GERD: Yes Hx Liver Disease: No Hx Renal Disease: No Hx of Cancer: No Hx Sickle Cell Disease: No Hx Arthritis: No Hx Headaches / Migraines: No Hx Seizures: No Hx Kidney Stones: No Hx Psychiatric Treatment: No Hx Asthma: No Hx COPD: No Hx Tuberculosis: No Hx Dementia: No Hx HIV: No Additional medical history: Sciatica. chronic anemia. obesity - Surgical History Past Surgical History?: Yes Hx Coronary Stent: No Hx Pacemaker: No Hx Internal Defibrillator: No Additional Surgical History: Tubal Ligation - Family History Family history: no significant - Social History Smoking Status: Never Smoker Substance Use Type: Alcohol - Medications Home Medications: Home Medications Medication Instructions Recorded Confirmed Last Taken Type No Known Home Medications [No 08/17/19 08/17/19 Unknown History Reported Home Medications] ED Review of Systems ROS: Stated complaint: VL VENOUS Other details as noted in HPI Comment: All other systems reviewed and negative Physical Exam - Physical Exam Physical Exam: no swelling appreciated on exam RLE dp palp plus 2 bilateral rapid cap refill no tachycardia no hypoxia no chest pain no sob walked to ER ED Medical Decision Making - Lab Data Result diagrams: 08/17/19 14:20 08/17/19 14:20 - EKG Data -: EKG Interpreted by Me EKG shows normal: sinus rhythm Rate: normal - EKG Data When compared to previous EKG there are: no significant change Interpretation: no acute changes - Radiology Data Radiology results: report reviewed, image reviewed - Medical Decision Making Labs 08/17/19 08/17/19 08/17/19 14:20 14:20 14:20 WBC 9.1 RBC 4.18 Hgb 7.2 L Hct 24.5 L MCV 59 L MCH 17 L MCHC 29 L RDW 24.5 H Plt Count 317 PT 13.9 INR 1.08 APTT 26.8 Sodium 136 L Potassium 4.2 Chloride 103.6 Carbon Dioxide 18 L Anion Gap 19 BUN 8 Creatinine 0.6 L Estimated GFR > 60 BUN/Creatinine Ratio 13 Glucose 127 H Calcium 9.2 Total Bilirubin 0.30 AST 13 ALT 8 Alkaline Phosphatase 80 Total Protein 8.4 H Albumin 4.1 Albumin/Globulin Ratio 1.0 Vital Signs 08/17/19 14:24 Temperature 97.9 F Pulse Rate 87 Respiratory 18 Rate Blood Pressure 138/88 O2 Sat by Pulse 99 Oximetry DVT RLE no chest pain no sob no history of same. neurovasc intact with no appreciable swelling US noted EKG without tachycardia or RV strain Normal VS Pt educated in great detail about DVT, treatment, concerns, follow up etc. I've also educated pt about eliquis as it related to her a/c anemia and the import of seeing her obgyn to follow her care/hgb. Eliquis dosed here in ER. Dc home with patient starter packet coupon card and detailed follow up instructions. She verbalizes understanding of plan of care and when/if to return to ER. - Differential Diagnosis dvt Critical care attestation.: If time is entered above; I have spent that time in minutes in the direct care of this critically ill patient, excluding procedure time. ED Disposition Clinical Impression: Chronic anemia, DVT (deep venous thrombosis) Disposition: DC-01 TO HOME OR SELFCARE Is pt being admited?: No Does the pt Need Aspirin: No Condition: Stable Instructions: Deep Venous Thrombosis (ED) Additional Instructions: do not rub your calf FOLLOW UP WITH PCP [facility] REFERRALS BELOW RETURN TO ER FOR SHARP SOB OR CHEST PAIN Referrals: YAMILETH MATOS DO [Staff Physician] - 3-5 Days Time of Disposition: 16:22 ED Psych EXAM - General General appearance: alert Limitations: Language Barrier - Head Head exam: Positive: normocephalic - Eye Eye exam: PERRL - Neck Neck exam: Positive: normal inspection - Respiratory Respiratory exam: Positive: normal lung sounds bilaterally - Cardiovascular Cardiovascular Exam: Positive: regular rate - GI/Abdominal GI/Abdominal exam: Positive: soft - Rectal Rectal exam: Positive: deferred - Extremities Extremities exam: Positive: normal inspection - Back Back exam: normal inspection - Neurological Neurological exam: Positive: alert, oriented X3, CN II-XII intact - Psychiatric Psychiatric Exam: Positive: Normal Affect, Normal Mood - Skin Skin exam: Positive: warm, dry
[2019-08-17 14:41] LABS: Hematocrit 24.5 % (30.3-42.9); Hemoglobin 7.2 gm/dl (10.1-14.3); Mean Corpuscular HGB Conc 29 % (30-34); Platelet Count 317 K/mm3 (140-440); Red Blood Count 4.18 M/mm3 (3.65-5.03)
[2019-08-17 14:42] LABS: Mean Corpuscular Volume 59 fl (79-97); Red Cell Distribution Width 24.5 % (13.2-15.2)
[2019-08-17 15:03] LABS: Alanine Aminotransferase 8 units/L (7-56); Albumin 4.1 g/dL (3.9-5); BUN/Creatinine Ratio 13; Blood Urea Nitrogen 8 mg/dL (7-17); Calcium 9.2 mg/dL (8.4-10.2); Hemolysis Index 1
[2019-08-17 15:07] LABS: INR 1.08 (0.87-1.13)
[2019-08-17 15:08] LABS: Partial Thromboplastin Time 26.8 Sec. (24.2-36.6)
[2019-08-17] MEDS ORDERED: APIXABAN 5 MG TAB PO STA (16:49)
[2019-08-17 17:33] VITALS: BP 136/85
[2019-08-17 19:44] LABS: Basophils % (Manual) 0 % (0.0-1.8); Eosinophils % (Manual) 0 % (0.0-4.3); Monocytes % (Manual) 0 % (0.0-7.3); Total Cells Counted 100
[2019-08-17 19:45] LABS: Anisocytosis 2+
[2019-08-17 19:46] LABS: Poikilocytosis 1+; Tear Drop Cells Few
[2019-08-17 19:47] LABS: Large Platelets Few; Ovalocytes Few; Platelet Estimate Consistent w Auto; Schistocytes Few; Target Cells Few
== END 2019-08-17 17:28 | disposition home or self-care (01) ==
LOC: ED 14:00
DX: I82.409 Acute embolism and thrombosis of unspecified deep veins of unspecified lower extremity (principal); D50.0 Iron deficiency anemia secondary to blood loss (chronic); Z98.51 Tubal ligation status; Z86.73 Personal history of transient ischemic attack (TIA), and cerebral infarction without residual deficits
CPT/HCPCS: 36415; 80053; 85007; 85025; 85610; 85730; 93005; 93010